=== PATIENT | female | born 1975 | race Caucasian/White ===

== ENCOUNTER 2016-05-02 20:21 | Emergency (ER) | payer BC ==
[2016-05-02 20:27] VITALS: BP 148/83; BMI 27.9
--- NOTE | 2016-05-02 20:35 | DR.GENAD ---
HPI - PCP Primary Care Physician: danielle - HPI Comment HPI Comment: NOTED HIVES YESTERDAY. WENT AWAY. TONIGHT GENERALIZE HIVES, GENERALIZE PRURITUS AND TONGUE TIGHTNESS AND WELLING. SLIGHT SOB. CAUSE OF HIVES NOT KNOWN. - Complaint/Symptoms Chief Complaint Doctors Comments: GENERALIZE RASH TIMES FEW HOURS. TOOK BENADRYL BEFORE COMING. Chief Complaint:: pt has rash allover body unknown what she could be allergic too - Nurses notes reviewed Nurses Notes Review: Yes - Source History Provided: Patient - Mode of Arrival Mode of Arrival: Ambulatory - Timing Onset of Chief Complaint: 05/01/16 Came on: Suddenly - Duration Duration: Constant Duration: Hours PMH - PMH Past Medical History: Yes Past Medical History Comment: adhd Past Surgical History: Yes Surgical History: Past Surgical History Comment: back foot knee - Family History History of Family Medical Conditions: No - Social History Does any household member use tobacco: No Alcohol Use: Rarely Do you use any recreational Drugs:: No Lives With: Family Lives Where: Home - infectious screening In the last 2 months have you had wt loss of >10#?: NO Have you had fever, night sweats or hemotysis?: No Have you traveled outside the country in the last 6 months?: No Isolation: Standard ROS - Review of Systems Constitutional: No Symptoms Reported Eyes: No Symptoms Reported ENTM: Throat Pain (DISCOMFORT. TONGUE TIGHT AND SWOLLEN. SPEECH INTACT.). negative: Ear Pain, Nose Discharge, Nose Congestion Respiratoy: Non-Productive Cough, Short of Breath (SLIGHT). negative: Productive Cough, Wheezing, Hemoptysis Cardiovascular: No Symptoms Reported Gastrointestinal/Abdominal: No Symptoms Reported Genitourinary: No Symptoms Reported Neurological: No Symptoms Reported Musculoskeletal: No Symptoms Reported Integumentary: Rash (GENERALIZE HIVES), Itching (GENERALIZE) Hematologic/Lymphatic: No Symptoms Reported Endocrine: No Symptoms Reported Psychiatric: negative: Anxiety All Other Systems: Reviewed and Negative PE - Vital Signs Vitals: Temperature 99.3 F Pulse Rate 72 Respiratory Rate 18 Blood Pressure 148/83 O2 Sat by Pulse Oximetry 99 - General Limitations: No Limitations General Appearance: Alert - Head Head Exam: Normal Inspection - Eyes Eye exam: Normal Appearance - ENT ENT Exam: Normal External Ear Exam External Ear Exam: Normal External Inspection TM/Canal Exam: Bilateral Normal Nose Exam: Normal Nose Exam Mouth Exam: Tongue Swelling Throat Exam: Normal Inspection. negative: Muffled Voice - Neck Neck Exam: Trachea Midline - Chest Chest Inspection: Symmetric Chest Wall Rise - Respiratory Respiratory Exam: Normal Lung Sounds Bilat Respiratory Exam: Bilateral Clear to Auscultation - Cardiovascular Cardiovascular Exam: Regular Rate, Normal Rhythm, Normal Heart Sounds - Abdominal Exam Abdominal Exam: Normal Bowel Sounds, Soft. negative: Tenderness - Extremities Extremities Exam: Joint Swelling (FINGERS SWOLLEN) - Back Back Exam: Normal Inspection - Neurologic Neurological Exam: Alert, Oriented X3, CN II-XII Intact, Normal Gait, Reflexes Normal. negative: Motor Sensory Deficit - Psychiatric Psychiatric Exam: Anxious - Skin Skin Exam: Rash (HIVES, GENERALIZE.) MDM - Additional Information Additional Information Obtained From: Family - Differential Diagnosis Differential Diagnosis: HIVES, ALLERGIC REACTION, SWOLLEN TONGUE Course - Treatment Treatment: SEE ORDERS - Reevaluation 1st: Improved (WITH MEDS IN ED.) - Education/Counseling Education/Counseling: Patient, Family, Education Educated On: Treatment, Diagnosis, Needs for Follow Up - Diagnosis Discharge Problem: Hives of unknown origin, Pruritus and related conditions, Glossal swelling Allergic reaction Qualifiers: Encounter type: initial encounter Qualified Code(s): T78.40XA - Allergy, unspecified, initial encounter - Discharge Plan Disposition: 01 HOME, SELF-CARE Condition: Stable Prescriptions: Hydroxyzine Pamoate [Vistaril] 25 - 50 mg PO QID PRN #20 cap PRN Reason: Methylprednisolone Dosepak 4Mg [MEDROL DOSEPAK (4 mg tab x 21)] 1 abhi PO ONCE # 1 abhi - Follow ups/Referrals Follow ups/Referrals: Russ Sosa [Primary Care Provider] - 3 days - Instructions Instructions: Allergies, Hives, [id number] Additional Instructions: RETURN TO ED IF WORSE.
[2016-05-02] MEDS ORDERED: BENADRYL INJ 50 MG VIAL ONE (20:37)
[2016-05-02] MEDS ORDERED: SOLU-MEDROL 125 MG VIAL ONE (20:37)
[2016-05-02] MEDS ORDERED: ADRENALINE CHL INJ ONE (20:38)
[2016-05-02] MEDS: BENADRYL INJ 50 MG VIAL IVP ONE (20:46)
[2016-05-02] MEDS: SOLU-MEDROL 125 MG VIAL IVP ONE (20:46)
[2016-05-02] MEDS: ADRENALINE CHL INJ IM ONE (20:47)
== END 2016-05-02 21:39 | disposition home or self-care (01) ==
LOC: ER 20:21
DX: L50.8 Other urticaria (principal); L29.8 Other pruritus; R22.9 Localized swelling, mass and lump, unspecified; T78.40XA Allergy, unspecified, initial encounter
CPT/HCPCS: 96365; 96372; 96374; 96375; 99283; A4222; J0170; J1200; J2930

== ENCOUNTER 2016-05-05 19:00 | Emergency (ER) | payer BC ==
[2016-05-05 19:12] VITALS: BP 143/74; BMI 28.3
--- NOTE | 2016-05-05 19:18 | DR.GENAD ---
HPI - PCP Primary Care Physician: danielle - Complaint/Symptoms Chief Complaint Doctors Comments: RECENTLY HAD REACTION TO PIZZA 2 DAYS AGO WITH RASH. hAS EPI PEN AND USED TONIGHT SHE FELT THROAT CLOSING UP WHEN INHALED PIZZA TONIGHT. Chief Complaint:: patient stated she was a pizza place and smelled yeast and her throat started closing up on her. she took her epi in triage. patient stated her throat felt tight - Nurses notes reviewed Nurses Notes Review: Yes - Source History Provided: Patient - Mode of Arrival Mode of Arrival: Ambulatory - Timing Onset of Chief Complaint: 05/05/16 Came on: Suddenly - Duration Duration: Minutes - Location Location: THROAT - Severity Severity: Moderate - Modifying Factors Worsens:: PIZZA EXPOSURE - Associated Signs and Symptoms Associated Signs and Symptoms: RASH HOARSE THROAT PMH - PMH Past Medical History: Yes Past Surgical History: Yes Surgical History: , Ortho Surgery - Family History History of Family Medical Conditions: No - Social History Does patient currently use any type of tobacco product: No Have you used tobacco products in the last 12 months: No Type of Tobacco Use: None Does any household member use tobacco: No Alcohol Use: None Do you use any recreational Drugs:: No Lives With: Family Lives Where: Home - infectious screening In the last 2 months have you had wt loss of >10#?: NO Have you had fever, night sweats or hemotysis?: No Have you traveled outside the country in the last 6 months?: No Isolation: Standard ROS - Review of Systems Constitutional: No Symptoms Reported Eyes: Other (LEFT EYE INJECTED) Respiratoy: No Symptoms Reported Cardiovascular: No Symptoms Reported Gastrointestinal/Abdominal: No Symptoms Reported Genitourinary: No Symptoms Reported Neurological: No Symptoms Reported Musculoskeletal: No Symptoms Reported Integumentary: Rash (ERYTHEMA) Hematologic/Lymphatic: No Symptoms Reported Endocrine: No Symptoms Reported Psychiatric: No Symptoms Reported PE - Vital Signs Vitals: Temperature 98.6 F Pulse Rate 76 Respiratory Rate 18 Blood Pressure 143/74 O2 Sat by Pulse Oximetry 100 - General Limitations: No Limitations General Appearance: Alert, In No Apparent Distress - Head Head Exam: Normal Inspection - Eyes Eye exam: Conjunctival Injection (LEFT EYE) - ENT ENT Exam: Other (HOARSE THROAT) External Ear Exam: Normal External Inspection Mouth Exam: Normal Inspection Throat Exam: Normal Inspection, Tonsillar Erythema, Tonsillomegaly - Neck Neck Exam: Normal Inspection, Full ROM, Trachea Midline - Respiratory Respiratory Exam: Normal Lung Sounds Bilat. negative: Accessory Muscle Use, Respiratory Distress Respiratory Exam: Bilateral Clear to Auscultation - Cardiovascular Cardiovascular Exam: Regular Rate - Extremities Extremities Exam: Normal Inspection, Full ROM - Back Back Exam: Normal Inspection - Neurologic Neurological Exam: Alert, Oriented X3, CN II-XII Intact - Psychiatric Psychiatric Exam: Anxious - Skin Skin Exam: Intact, Erythema. negative: Normal Color Course - Treatment Treatment: 2020 FEELS FINE NOW - Diagnosis Discharge Problem: Allergic reaction to food Qualifiers: Encounter type: subsequent encounter Qualified Code(s): T78.1XXD - Other adverse food reactions, not elsewhere classified, subsequent encounter - Discharge Plan Condition: Stable Prescriptions: Prednisone [Prednisone Tab 20 mg] 20 mg PO BID #10 tab - Follow ups/Referrals Follow ups/Referrals: Russ Sosa [Primary Care Provider] - 3 days - Instructions
[2016-05-05] MEDS ORDERED: DECADRON INJ IM ONE (19:22)
[2016-05-05] MEDS ORDERED: BENADRYL CAP 50 MG PO ONE (19:22)
[2016-05-05] MEDS ORDERED: BENADRYL CAP/TAB 25 MG PO ONE ×2 (19:22→19:35)
== END 2016-05-05 20:33 | disposition home or self-care (01) ==
LOC: ER 19:14
DX: T78.1XXD Other adverse food reactions, not elsewhere classified, subsequent encounter (principal)
CPT/HCPCS: 96372; 99282; J1100

== ENCOUNTER → 2017-04-18 | Outpatient (CLI) | payer BC ==
--- NOTE | 2017-04-18 14:32 | MG ---
HISTORY: SCREENING Comparison: 04/12/2016 FINDINGS: Bilateral CC and MLO projections of the right and left breast were obtained. Scattered fibroglandula r tissue is seen to be present. No significant architectural distortion, mass or clustered microcalc ifications can be observed to suggest malignancy. No skin thickening or nipple retraction is appreci ated. No pathological lymphadenopathy can be identified. IMPRESSION: NO RADIOGRAPHIC EVIDENCE OF MALIGNANCY. ACR CATEGORY I - NEGATIVE EXAM. FOLLOW-UP EXAM 1 YEAR. Diagnostic CAD was utilized and reviewed. * 0 (ZERO) - ASSESSMENT INCOMPLETE; ADDITIONAL IMAGING IS NEEDED. * 1/ (ONE) - NEGATIVE. * 2/II (TWO) - BENIGN FINDINGS. * 3/III (THREE) - PROBABLY BENIGN FINDING; SHORT INTERVAL FOLLOW-UP SUGGESTED. * 4/IV (FOUR) - SUSPICIOUS ABNORMALITY; BIOPSY SHOULD BE CONSIDERED. * 5/V - HIGHLY SUSPICIOUS OF MALIGNANCY; BIOPSY SHOULD BE PERFORMED. A NEGATIVE X-RAY REPORT SHOULD NOT DELAY BIOPSY IF A DOMINANT OR CLINICALLY SUSPICIOUS MASS IS PRESENT; 4 TO 8 PERCENT OF CANCERS ARE NOT IDENTIFIED BY X-RAY. A NEGA TIVE REPORT MAY REINFORCE THE CLINICAL IMPRESSION. ADENOSIS AND DENSE BREASTS MAY OBSCURE AN UNDERLY ING NEOPLASM. Reported By:
== END | disposition home or self-care (01) ==
LOC: RAD 09:32
PROVIDERS: ATTEND Nurse Practitioner Family
DX: Z12.31 Encounter for screening mammogram for malignant neoplasm of breast (principal)
CPT/HCPCS: 77067